=== PATIENT | male | born 1935 | race Caucasian/White ===

== ENCOUNTER 2017-01-21 13:08 | Day surgery (SDC) | payer MEDICARE, BC ==
[~2017-01-21 13:08] MED LIST: ASPI81TA11 OR; BCG; GLYB1TAB51 PO; LORA1TAB PO; METF500T PO; POTASSIUM; ROSU40 PO; TRAV0.00 LEFT EYE; [UNRECOGNIZED DRUG - OTHER]
[2017-01-21 13:30] VITALS: BP 145/76; PULSE 82; RESP 20; TEMP 97.8; O2SAT 97
[2017-01-21] MEDS ORDERED: LORA1TAB12 PO (14:06)
[2017-01-21] MEDS ORDERED: CYCL1TAB29 PO (14:06)
[2017-01-21] MEDS ORDERED: TRAZ50TA12 PO (14:06)
[2017-01-21] MEDS ORDERED: LEVO50TA4 PO (14:06)
[2017-01-21] MEDS ORDERED: ROSU40 PO (14:06)
[2017-01-21] MEDS ORDERED: GLYB5TAB3 PO (14:06)
[2017-01-21] MEDS ORDERED: ASPI81CH37 CHEW (14:06)
[2017-01-21] MEDS ORDERED: TRIAMCINOLONE ACETONIDE 40 MG/ML VIAL ONE (15:39)
[2017-01-21] MEDS ORDERED: ROPIVACAINE 1% PF INJ 20 ML AMP ONE (15:39)
[2017-01-21 16:00] VITALS: BP 142/72; PULSE 88; RESP 16; TEMP 98.6
--- NOTE | 2017-01-21 16:19 | PD.RAD ---
Post Procedure Progress Note Pre Procedure Diagnosis: (1) Right hip pain Post Procedure Diagnosis: (1) Right hip pain Procedure Date: January 21, 2017 Supervising Radiologist: Kolton Godinez Anesthesia: Local Plan of Activity Patient to Unit: [facility] Patient Condition: Good Additional Comments: Right hip aspiration completed 4 cc of thick yellow fluid removed. likely effusion but appeared thicker and darker than normal Fluid sent to lab if negative will have pt return for steroid injection. See PACS Report for procedural detail/treatment Kolton Godinez MD January 21, 2017 16:19
[2017-01-21 16:30] VITALS: BP 151/79; PULSE 88; RESP 16
--- NOTE | 2017-01-21 17:06 | RADRPT ---
EXAM DATE/TIME: 01/21/2017 15:57 [facility] COMPARISON: No previous studies available for comparison. INDICATIONS : Patient with right hip pain in need of joint aspiration. MEDICAL HISTORY : 1.Bladder cancer 2.Right placement 3.AAA SURGICAL HISTORY : 1.Right hip replacement 2.AAA repair 3.Right shoulder rotator cuff ENCOUNTER: Initial ACUITY: 7 - 11 months PAIN SCORE: 6/10 Right Hip. FLUORO TIME: 0.5 minutes IMAGE SERIES: DEVICE(S): 25 gauge needle was placed into the right hip joint. PROCEDURE : 1. Fluoroscopically guided right hip aspiration. The risks, benefits and alternatives to the procedure were explained and verbal and written consent w as obtained. The site was prepped in sterile fashion. Full sterile technique was used, including ca p, mask, sterile gloves and gown and a large sterile sheet. Hand hygiene and 2% chlorhexidine and/or betadine/alcohol prep was utilized per protocol for cutaneous antisepsis. The skin and subcutaneous tissues were infiltrated with local anesthetic solution. The hip was accessed with a 22 gauge needle. There was immediate return of approximately 3-4 cc of th ick yellow fluid. This probably represents an exudative fluid but it appears thicker and somewhat kay ker than one would expect. As such, this was sent to the lab for culture and sensitivity. When labs r eturned if they are negative for infection patient will be rescheduled for steroid administration int o the hip. The patient tolerated the procedure well and there were no complications. CONCLUSION: Uncomplicated aspiration as above. No steroids were administered as the fluid that returned appeared fairly thick and somewhat darker yellow than one would expect. Samples were sent for culture and sens itivity. Kolton Godinez MD on January 21, 2017 at 17:03 Board Certified Radiologist. This report was verified electronically.
[2017-01-21 18:42] LABS: WBC, SYNOVIAL FLUID 66 /MM3 (0-200)
== END 2017-01-21 17:00 | disposition home or self-care (01) ==
LOC: HROP 13:08 → HRIP 13:09 → HROP 17:00
PROVIDERS: ATTEND Physician Assistant
DX: M25.551 Pain in right hip (principal); Z85.51 Personal history of malignant neoplasm of bladder; Z96.641 Presence of right artificial hip joint; Z88.2 Allergy status to sulfonamides; Z88.8 Allergy status to other drugs, medicaments and biological substances
CPT/HCPCS: 20610; 77002; 87070; 87102; 87205; 87206; 89051; J2795; J3301